=== PATIENT | female | born 1945 | race Caucasian/White ===

== ENCOUNTER → 2016-12-19 | Outpatient (CLI) | payer OTHER ==
[~2016-12-19] MED LIST: ATOR-24 PO; DVN/160 PO; OXAP600T PO
== END | disposition home or self-care (01) ==
LOC: C.PATHSPEC 17:50
PROVIDERS: ATTEND Obstetrics & Gynecology
DX: N76.2 Acute vulvitis (principal); L28.0 Lichen simplex chronicus

== ENCOUNTER → 2017-01-16 | Outpatient (CLI) | payer OTHER ==
--- NOTE | 2017-01-20 14:00 | MAMMOGRAPHY REPORT ---
THIS REPORT HAS BEEN AMENDED. BILATERAL DIGITAL SCREENING MAMMOGRAM WITH CAD: 01/16/2017 CLINICAL HISTORY: Routine screening. Patient has no complaints. TECHNIQUE: Bilateral CC and MLO views were obtained. Current study was also evaluated with a Comput er Aided Detection (CAD) system. COMPARISON: No prior exams were available for comparison. BREAST COMPOSITION: There are scattered areas of fibroglandular density in both breasts. FINDINGS: There are a few scattered punctate benign-appearing microcalcifications in the breasts. No suspicious mass, architectural distortion or cluster of suspicious microcalcifications is seen. IMPRESSION: ACR BI-RADS CATEGORY 1: NEGATIVE There is no mammographic evidence of malignancy. Prior outside mammograms are currently being reque sted and if obtained they will be reviewed, compared to the current exam to assess for any more subt le changes, and an addendum will be made to this report. Otherwise, a 1 year screening mammogram is recommended. The patient will receive written notification of the results. Approximately 10% of breast cancers are not detected with mammography. A negative mammographic repor t should not delay biopsy if a clinically suggestive mass is present. Niru Holbrook M.D. ay/:01/20/2017 12:07:01 Manager Configuration: Loreta ORDOÑEZ(Mary Lou)(Asim)(BD), [facility] letter sent: Normal 11/11 BI-RADS Code: ACR BI-RADS Category 1: Negative AMENDMENT: 01/29/2017 Niru Holbrook M.D. Prior outside mammograms from [place] dated 04/04/2011, 06/01/2012 and 08/24/2013 became available for review. The parenchymal pattern is unchanged comparing to the prior outside mammograms. There are a few scattered benign-appearing punctate microcalcifications. No suspicious mass, architectura l distortion, developing asymmetry or new suspicious microcalcifications are seen bilaterally. [place] mmend follow-up in 1 year for next annual screening mammogram. Amended BI-RADS: ACR BI-RADS Category 1: Negative letter sent: Normal 2
== END | disposition home or self-care (01) ==
LOC: C.MAMM 10:48
PROVIDERS: ATTEND Obstetrics & Gynecology
DX: Z12.31 Encounter for screening mammogram for malignant neoplasm of breast (principal)

== ENCOUNTER 2017-12-27 09:21 | Emergency (ER) | payer OTHER ==
[~2017-12-27] VITALS: Ht 167.6 cm; Wt 67.7 kg
[2017-12-27 09:25] VITALS: TEMP 36.8; Ht 167.6 cm; Wt 67.7 kg
--- NOTE | 2017-12-27 09:40 | EMERGENCY ROOM VISIT NOTE ---
History First contact with patient: 09:28 Chief Complaint: BACK PAIN Stated Complaint: BACK PAIN LOWER, HEADACHE,LOW GRADE FEVER History of Present Illness The patient is a 72 year old female who presents to the Emergency Room with complaints of worsening low back pain that started 2 days ago. She was recalls bending to pick something up, and though there was no immediate pain, her back later became sore, and patient felt she may have pulled a muscle. The pain spread to her bilateral low back, and did not improve with muscle cream. The pain is worse when lying flat, but improves with ambulation. She has not tried any analgesics for relief. Last night, pain was worse and woke her from sleep. She also felt some radiation around to right abdomen. Pain described as dull ache, severity 7/10 at it's worse, but currently 5/10. Patient had some nausea yesterday, but no vomiting. She denies any current abdominal pain. She denies numbness, tingling or weakness in the lower extremities, no saddle paresthesias, no incontinence of stool or urine. She has had no urinary symptoms or changes in bowel habits. No falls or trauma to back. No previous back injury. Her only surgeries include 3 sections. She otherwise denies fevers/chills, CP, palpitations, dyspnea, lower extremity swelling or rashes. She is tolerating diet without nausea, vomiting or pain exacerbation. Review of Systems See HPI for pertinent positives and negatives. A total of ten systems were reviewed and were otherwise negative. Past Medical/Surgical History Medical Problems: (1) Chest pain (2) Heart palpitations (3) Hepatitis C (4) Hypertension (5) S/P knee surgery Surgical Problems: (1) H/O section (2) Hx of vagotomy (3) S/P tonsillectomy Family History Diabetes mellitus FHx: cancer FHx: heart disease Hypertension Social History Smoking Status: Never Smoker Alcohol Use: none Marital Status: Housing Status: lives with significant other Occupation Status: retired Current/Historical Medications Scheduled Atorvastatin (Lipitor), 40 MG PO QPM Oxaprozin (Daypro), 600 MG PO QAM Valsartan (Diovan), 160 MG PO QAM Physical Exam Vital Signs Date Time Temp Pulse Resp B/P (MAP) Pulse Ox O2 Delivery O2 Flow Rate FiO2 12/27/17 11:51 78 18 147/84 98 2/17/18 10:57 54 18 159/88 95 Room Air 12/27/17 09:25 36.8 60 18 168/92 96 Room Air Physical Exam GENERAL: alert, well appearing, thin, sitting in bed, no acute distress, non- toxic HEAD: Normocephalic, atraumatic EYES: PERRL, EOMI, normal sclera and conjunctiva OROPHARYNX: No exudate, no erythema. Lips, buccal mucosa, and tongue normal and mucous membranes are tacky NECK: Supple, no nuchal rigidity, no adenopathy, non-tender, full ROM LUNGS: No reproducible chest wall tenderness. Clear to auscultation. Normal chest wall mechanics, good air entry. No crepitations, crackles, or wheezes HEART: RRR, S1 and S2 normal, no murmurs appreciated ABDOMEN: Soft, non-tender, normo-active bowel sounds, no masses, no rebound or guarding. BACK: Back is symmetrical on inspection, no deformities, no midline tenderness, no paraspinal tenderness, no CVA tenderness. Full ROM - flexion, extension, lateral flexion, rotation - without exacerbating pain symptoms. SKIN: Warm, pink, dry. No erythema, rashes, or bruising. EXTREMITIES: Grossly normal. Moving all 4 limbs. No pitting edema. Calves non tender. NEURO: Alert, Ox3. No focal deficits. Cranial nerves II-XII grossly intact, normal speech. Normal sensorium, strength 5/5 in all extremities. Patellar DTR 2 +. Gait non-antalgic, WNL. PSYCH: Mood and affect appropriate. Medical Decision & Procedures ER Provider Diagnostic Interpretation: LUMBAR SPINE 3 VIEWS HISTORY: low back pain COMPARISON: None. FINDINGS: There is no fracture. Mild levoscoliosis. Epigastric surgical clips. The sacrum appears intact. 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 Alignment is maintained. Small endplate osteophytes and mild disc space narrowing at L2-L3, L3-L4, and L4-L5. IMPRESSION: No fracture or subluxation within the lumbar spine. Degenerative changes as described above. Laboratory Results 12/27/17 10:00 Red Blood Count 4.46, Mean Corpuscular Volume 88.1, Mean Corpuscular Hemoglobin 29.8, Mean Corpuscular Hemoglobin Concent 33.8, Mean Platelet Volume 9.5, Neutrophils (%) (Auto) 58.0, Lymphocytes (%) (Auto) 28.7, Monocytes (%) (Auto) 7.1, Eosinophils (%) (Auto) 5.3, Basophils (%) (Auto) 0.7, Neutrophils # (Auto) 3.41, Lymphocytes # (Auto) 1.69, Monocytes # (Auto) 0.42, Eosinophils # (Auto) 0.31, Basophils # (Auto) 0.04 12/27/17 10:00 Test 12/27/17 10:00 White Blood Count 5.88 K/uL (4.8-10.8) Red Blood Count 4.46 M/uL (4.2-5.4) Hemoglobin 13.3 g/dL (12.0-16.0) Hematocrit 39.3 % (37-47) Mean Corpuscular Volume 88.1 fL (80-100) Mean Corpuscular Hemoglobin 29.8 pg (25-34) Mean Corpuscular Hemoglobin Concent 33.8 g/dl (32-36) Platelet Count 202 K/uL (130-400) Mean Platelet Volume 9.5 fL (7.4-10.4) Neutrophils (%) (Auto) 58.0 % Lymphocytes (%) (Auto) 28.7 % Monocytes (%) (Auto) 7.1 % Eosinophils (%) (Auto) 5.3 % Basophils (%) (Auto) 0.7 % Neutrophils # (Auto) 3.41 K/uL (1.4-6.5) Lymphocytes # (Auto) 1.69 K/uL (1.2-3.4) Monocytes # (Auto) 0.42 K/uL (0.11-0.59) Eosinophils # (Auto) 0.31 K/uL (0-0.5) Basophils # (Auto) 0.04 K/uL (0-0.2) RDW Standard Deviation 43.2 fL (36.4-46.3) RDW Coefficient of Variation 13.4 % (11.5-14.5) Immature Granulocyte % (Auto) 0.2 % Immature Granulocyte # (Auto) 0.01 K/uL (0.00-0.02) Urine Color YELLOW Urine Appearance CLEAR (CLEAR) Urine pH 5.5 (4.5-7.5) Urine Specific [place] 1.016 (1.000-1.030) Urine Protein NEG (NEG) Urine Glucose (UA) NEG (NEG) Urine Ketones NEG (NEG) Urine Occult Blood NEG (NEG) Urine Nitrite NEG (NEG) Urine Bilirubin NEG (NEG) Urine Urobilinogen NEG (NEG) Urine Leukocyte Esterase NEG (NEG) Anion Gap 8.0 mmol/L (3-11) Est Creatinine Clear Calc Drug Dose 59.0 ml/min Estimated GFR () 82.8 Estimated GFR (Non- 71.4 BUN/Creatinine Ratio 29.1 (10-20) Calcium Level 9.1 mg/dl (8.5-10.1) Total Bilirubin 0.5 mg/dl (0.2-1) Direct Bilirubin 0.1 mg/dl (0-0.2) Aspartate Amino Transf (AST/SGOT) 26 U/L (15-37) Alanine Aminotransferase (ALT/SGPT) 30 U/L (12-78) Alkaline Phosphatase 104 U/L (45-117) Total Protein 7.5 gm/dl (6.4-8.2) Albumin 3.8 gm/dl (3.4-5.0) Medications Administered Medications (Trade) Dose Ordered Sig/Lyndon Route Start Time Stop Time Status Last Admin Dose Admin Sodium Chloride 500 ml @ 150 mls/hr Q3H20M IV 12/27/17 10:45 12/27/17 12:13 DC 12/27/17 10:55 150 MLS/HR Medical Decision Prior records/ancillary studies reviewed. Triage Nursing notes reviewed. Additional history obtained from patient. The patient's history was concerning for back pain. Differential diagnosis: Etiologies such as musculoskeletal, disc herniation, fracture, aortic disease, metastatic disease, cord compression, discitis, infection, renal colic, gastrointestinal, acute exacerbation of chronic back pain, sciatica, cauda equina, as well as others were entertained. Physical findings: As above. No focal neurologic findings noted. ER treatment provided: Patient declined analgeics and anti-emetics as she is asymptomatic at this time On reassessment the patient felt better. Diagnostics interpreted by me: The labs revealed CBC, BMP, LFT WNL. UA unremarkable. Imaging studies: L-spine film: degenerative changes, but no fractures or subluxation. By the evaluation outlined above emergent etiologies such as fracture, aortic disease, metastatic disease, infection, renal colic, gastrointestinal, cord compression, cauda equina, as well as others were deemed relatively unlikely. The patient was informed about the findings as listed above. All questions were answered and she was pleased with the treatment. Return instructions were outlined and the patient was discharged in stable condition. Outpatient prescription management: Tylenol and/or ibuprofen PRN pain Warm compress Gentle stretching Referral: The patient was referred back to her primary care physician for follow-up in 2 to 3 days for a recheck of the current condition, and for possible referral to physical therapy.. Impression Primary Impression: Low back pain Departure Information Dispostion Home / Self-Care Condition GOOD Referrals No Doctor, Assigned (PCP) Patient Instructions My [facility] Resident Tracking Resident Involvement: Resident Care Provided Care Provided: Adult ED
--- NOTE | 2017-12-27 10:06 | EMERGENCY ROOM VISIT NOTE ---
ED Visit Note First contact with patient: 09:29 Resident Physician Supervision Note: I interviewed and examined the patient. Discussed with Dr. Lyle and agree with findings and plan as documented in the note. Documented By: Dave Lindo Problem List Medical Problems: (1) Hepatitis C Status: Resolved (2) Hypertension Status: Chronic (3) S/P knee surgery Status: Resolved Surgical Problems: (1) H/O section Status: Resolved (2) Hx of vagotomy Status: Resolved (3) S/P tonsillectomy Status: Resolved Current/Historical Medications Scheduled Atorvastatin (Lipitor), 40 MG PO QPM Oxaprozin (Daypro), 600 MG PO QAM Valsartan (Diovan), 160 MG PO QAM Allergies Coded Allergies: Levofloxacin (Unverified Allergy, Unknown, upset stomach , 07/24/16) Vital Signs Date Time Temp Pulse Resp B/P (MAP) Pulse Ox O2 Delivery O2 Flow Rate FiO2 12/27/17 09:25 36.8 60 18 168/92 96 Room Air Laboratory Results Test 12/27/17 09:40 12/27/17 09:57 Departure Information Referrals No Doctor, Assigned (PCP) Patient Instructions [facility]
[2017-12-27 10:19] LABS: BASO % 0.7 %; BASO ABS # 0.04 K/uL (0-0.2); EOS % 5.3 %; EOS ABS # 0.31 K/uL (0-0.5); HEMATOCRIT 39.3 % (37-47); HEMOGLOBIN 13.3 g/dL (12.0-16.0); IG# 0.01 K/uL (0.00-0.02); LYMPH % 28.7 %; LYMPH ABS # 1.69 K/uL (1.2-3.4); MEAN CELL VOLUME 88.1 fL (80-100); MEAN CORPUSCULAR HEMOGLOBIN 29.8 pg (25-34); MEAN CORPUSCULAR HGB CONC 33.8 g/dl (32-36); MEAN PLATELET VOLUME 9.5 fL (7.4-10.4); MONO % 7.1 %; MONO ABS # 0.42 K/uL (0.11-0.59); NEUT ABS # 3.41 K/uL (1.4-6.5); PLATELET COUNT 202 K/uL (130-400); RED CELL DISTRIBUTION WIDTH CV 13.4 % (11.5-14.5); RED CELL DISTRIBUTION WIDTH SD 43.2 fL (36.4-46.3); WHITE BLOOD COUNT 5.88 K/uL (4.8-10.8)
[2017-12-27 10:37] LABS: ALBUMIN 3.8 gm/dl (3.4-5.0); CALCIUM 9.1 mg/dl (8.5-10.1); CREATININE 0.83 mg/dl (0.60-1.20); POTASSIUM 3.9 mmol/L (3.5-5.1)
[2017-12-27 10:40] LABS: TOTAL PROTEIN 7.5 gm/dl (6.4-8.2)
--- NOTE | 2017-12-27 10:43 | DIAGNOSTIC IMAGING REPORT ---
LUMBAR SPINE 3 VIEWS HISTORY: low back pain COMPARISON: None. FINDINGS: There is no fracture. Mild levoscoliosis. Epigastric surgical clips. The sacrum appears intact. 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 Alignment is maintained. Small endplate osteophytes and mild disc space narrowing at L2-L3, L3-L4, and L4-L5. IMPRESSION: No fracture or subluxation within the lumbar spine. Degenerative changes as described above. Electronically signed by: Tavo Grace M.D. 12/27/2017 10:42 AM Dictated Date/Time: 12/27/2017 10:40 AM
[2017-12-27] MEDS ORDERED: SODIUM CHLORIDE 0.9% 500ML 500 ML IV SCH (10:45)
[2017-12-27 11:51] VITALS: BP 147/84; PULSE 78; O2SAT 98
== END 2017-12-27 11:52 | disposition home or self-care (01) ==
LOC: C.EDB 09:23
DX: M54.5 Low back pain (principal); B19.20 Unspecified viral hepatitis C without hepatic coma; I10 Essential (primary) hypertension; Z83.3 Family history of diabetes mellitus; Z80.9 Family history of malignant neoplasm, unspecified; Z82.49 Family history of ischemic heart disease and other diseases of the circulatory system; Z79.899 Other long term (current) drug therapy

== ENCOUNTER → 2018-02-06 | Outpatient (CLI) | payer OTHER ==
--- NOTE | 2018-02-09 07:33 | MAMMOGRAPHY REPORT ---
BILATERAL DIGITAL SCREENING MAMMOGRAM TOMOSYNTHESIS WITH CAD: 02/06/2018 CLINICAL HISTORY: Routine screening. Patient has no complaints. TECHNIQUE: Breast tomosynthesis in addition to standard 2D mammography was performed. Current study was also evaluated with a Computer Aided Detection (CAD) system. COMPARISON: Comparison is made to exams dated: 01/16/2017 mammogram - [facility], mammogram, 06/01/2012 mammogram, and 04/04/2011 mammogram - [facility]. BREAST COMPOSITION: There are scattered areas of fibroglandular density in both breasts. FINDINGS: There is a nodular 6 mm asymmetry seen within the left breast middle depth posterior to the nipple on the cc tomosynthesis images, not clearly evident on the MLO view. Recommend spot compress ion tomosynthesis views and possible breast ultrasound for further evaluation. The remainder of both breasts are stable compared to prior exams, without suspicious masses, calcific ations, or areas of architectural distortion noted. IMPRESSION: ACR BI-RADS CATEGORY 0: INCOMPLETE EVALUATION: NEED ADDITIONAL IMAGING EVALUATION Left breast asymmetry, for which additional imaging evaluation is recommended. The patient will be c alled to schedule an appointment. Approximately 10% of breast cancers are not detected with mammography. A negative mammographic report should not delay biopsy if a clinically suggestive mass is present. Jolanta Li M.D. ah/:02/06/2018 16:42:21 Gas Leak Inspector: Loreta BELLE)(Asim)(BD), [facility] letter sent: Addl Imaging 0 BI-RADS Code: ACR BI-RADS Category 0: Incomplete Evaluation: Need Additional Imaging Evaluation
== END | disposition home or self-care (01) ==
LOC: C.MAMM 09:38
PROVIDERS: ATTEND Obstetrics & Gynecology
DX: Z12.31 Encounter for screening mammogram for malignant neoplasm of breast (principal); R92.8 Other abnormal and inconclusive findings on diagnostic imaging of breast

== ENCOUNTER → 2018-02-18 | Outpatient (CLI) | payer OTHER ==
--- NOTE | 2018-02-19 07:58 | MAMMOGRAPHY REPORT ---
UNILATERAL LEFT DIGITAL DIAGNOSTIC MAMMOGRAM TOMOSYNTHESIS AND TARGETED LEFT ULTRASOUND: 02/18/2018 CLINICAL HISTORY: 72-year-old woman called back from screening mammography for a 6 mm nodular asymmet ry in the middle one third of the left breast on the cc view. TECHNIQUE: Spot compression left CC and MLO tomosynthesis images were obtained. COMPARISON: Comparison is made to exams dated: 02/06/2018 mammogram, 01/16/2017 mammogram - [facility], 08/24/2013 mammogram, 06/01/2012 mammogram, and 04/04/2011 mammogram - [facility]. BREAST COMPOSITION: There are scattered areas of fibroglandular density in the left breast. FINDINGS: The supplemental spot compression tomosynthesis views of the left breast demonstrate effac ement of the 6 mm nodular asymmetry along the posterior nipple line on the spot compression left CC v iew. No corresponding abnormality, suspicious mass or area of architectural distortion is seen on th e spot compression MLO tomosynthesis images. Targeted ultrasound was performed in the left breast 6:00, retroareolar and 12:00 axes as well as the slightly lateral and slightly medial left breast. There is a small area of focal duct ectasia with i nterspersed normal tissue versus possible intraductal mass in the 4:00 left breast, 3 cm from the nip ple, measuring 5.0 x 2.3 x 4.9 mm. This is likely incidental and not thought to correspond with the initial mammographic asymmetry. No other discrete solid or cystic mass is identified. Nevertheless given that this is a focal abnormality and could possibly represent an intraductal mass, definitive c haracterization with ultrasound-guided core biopsy is recommended. IMPRESSION: ACR BI-RADS CATEGORY 4: SUSPICIOUS, TARGETED ULTRASOUND ACR BI-RADS CATEGORY 4: SUSPICIO US 1. Ultrasound-guided core biopsy is recommended for an area of focal duct ectasia versus possible in traductal mass measuring 5 mm within the 4:00 left breast, 3 cm from the nipple. This is likely inci dentally identified as the initial mammographic asymmetry effaced with supplemental spot compression tomosynthesis images. These results and recommendations were discussed with the patient at the time of the exam. She tenta tively scheduled the biopsy prior to leaving the department. Approximately 10% of breast cancers are not detected with mammography. A negative mammographic report should not delay biopsy if a clinically suggestive mass is present. Niru Holbrook M.D. ay/:02/18/2018 10:51:44 Head Paper Tester: Leticia BELLE)Ja), [facility] letter sent: Abnormal 4/5 BI-RADS Code: ACR BI-RADS Category 4: Suspicious Ultrasound BI-RADS: ACR BI-RADS Category 4: Suspici ous
== END | disposition home or self-care (01) ==
LOC: C.MAMM 10:18
PROVIDERS: ATTEND Obstetrics & Gynecology
DX: R92.8 Other abnormal and inconclusive findings on diagnostic imaging of breast (principal)

== ENCOUNTER → 2018-03-02 | Outpatient (CLI) | payer OTHER ==
--- NOTE | 2018-03-02 10:55 | Discharge Instructions ---
Discharge Instructions Procedure Procedure Date: Mar 02, 2018. Reason for visit: Left Mass. Discharge Discharge Date: Mar 02, 2018. Discharge Diagnosis: post left breast ultrasound guided core biopsy Instructions Activity Recommendations: Additional Limitations (see below) Return to School/Work: no limitations Recommended Home Diet: No Limitations Provider Instructions: ACTIVITY RECOMMENDATIONS: * No lifting, pushing, pulling or exercising the affected side for three days. RETURN TO SCHOOL/WORK: * You may return to work/school after the procedure, but do not perform any strenuous activities for 24 to 48 hours. MEDICATIONS: * Tylenol (two 325 mg) every four to six hours if needed for mild pain (if not allergic to Tylenol). DIET: * Resume previous diet. SPECIAL CARE INSTRUCTIONS: * Keep biopsy site dry for 24 hours. May shower after 24 hours, but do not soak (bathe) incision. * May remove Tegaderm (plastic patch) tomorrow AFTER showering. * Leave the steri-strips on for one week. Allow the steri-strips to fall off by themselves. If not off after one week, you may remove them. You may place a Bandaid crosswise over the strips, if desired. * Apply ice 10 minutes on and 10 minutes off as needed. * Wear a bra at bedtime to sleep more comfortably for 2-3 days. * Your referring physician should have the results after approximately 5 to 7 business days. * Call for unusual bleeding, fever, drainage, etc or if you have any questions call [phone] during normal business hours or after hours call Dr Holbrook, . FOLLOW UP VISIT: Follow-up with Referring Physician as scheduled. Allergies Coded Allergies: Levofloxacin (Unverified Allergy, Unknown, upset stomach , 07/24/16) Stacey Burrows Recommendations: Call your doctor if: * Temperature above 101 degrees * Pain not relieved by pain medicine ordered * There is increased drainage or redness from any incision * You have any unanswered questions or concerns. Your Doctors Instructions noted above were prepared by provider Niru Holbrook. Patient Signature Section: Patient Instructions Signature Page Mitzy Berg Patient (or Guardian) Signature/Date: I have read and understand the instructions given to me by my caregivers. Caregiver/RN/Doctor Signature/Date: The above-named patient and/or guardian has received patient instructions on this date. + Original Patient Signature Page (only) stays with chart. Please make copy for patient.
--- NOTE | 2018-03-03 07:37 | MAMMOGRAPHY REPORT ---
ULTRASOUND GUIDED BIOPSY LEFT BREAST: 03/02/2018 CLINICAL HISTORY: 72-year-old woman presents for biopsy in the left breast of a 5 mm lesion identifie d in the 4:00 axis on ultrasound, which could represent focal duct ectasia, a cyst or intraductal mas s. COMPARISON: Comparison is made to exams dated: 02/18/2018 ultrasound, 02/18/2018 mammogram, 02/06/2018 mammogram, 01/16/2017 mammogram - [facility], 08/24/2013 mammogram, and 06/01/2012 [facility]. PATIENT CONSENT: The procedure, risks and benefits were discussed with the patient and informed conse nt was obtained both verbally and in writing. Specific risks to this procedure include: bleeding, in fection, puncture of adjacent structure, nontarget biopsy, sampling error, pain, metal allergy and me dication reaction. PROCEDURE DESCRIPTION: A time out was performed and the left breast was agreed as the site of biopsy. The skin was prepped and draped in the usual sterile fashion. The 5 mm mass in the 4:00 left breast was chosen as the target for biopsy. Subcutaneous and intraparenchymal 1% buffered lidocaine, with an d without epinephrine, was administered as local anesthesia. A skin incision was made. Through the i ncision, 4 samples were taken with a 14 gauge Achieve biopsy device. A ribbon shaped metallic marker was placed at the biopsy site. Hemostasis was achieved after manual compression. The patient tolerate d the procedure well and there was no immediate complication. The samples were sent to the pathology department in an appropriately labeled container. Postprocedure left CC and ML tomosynthesis images were obtained. A new ribbon-shaped biopsy marker c lip, and no significant hematoma, is identified in the 4:00 middle one third of the left breast. Bas ed on the postprocedure CC projection, the clip may align with the initial nodular asymmetry in quest ion although it is displaced medially by approximately 3 mm. Pending benign pathology results, may c onsider a six-month follow-up exam to ensure stability. IMPRESSION: ULTRASOUND GUIDED BIOPSY Status post ultrasound-guided core biopsy of an indeterminate 5 mm mass versus focal duct ectasia in the 4:00 left breast, with ribbon-shaped biopsy marker clip placed at the site. The patient will receive notification of the biopsy results from her referring physician. Niru Holbrook M.D. ay/:03/02/2018 11:09:05 Radiochemical Technician: Isabel BELLE)Ja), [facility]
--- NOTE | 2018-03-03 07:40 | MAMMOGRAPHY REPORT ---
UNILATERAL LEFT DIGITAL DIAGNOSTIC MAMMOGRAM TOMOSYNTHESIS: 03/02/2018 CLINICAL HISTORY: Status post ultrasound-guided core biopsy of a 5 mm possible intraductal mass versu s duct ectasia versus cyst in the 4:00 left breast. Please refer to the report from left breast ultrasound-guided core biopsy performed at the same time for full detail. IMPRESSION: POST PROCEDURE IMAGING FOR MARKER PLACEMENT Please refer to the report from left breast ultrasound-guided core biopsy performed at the same time for full detail. Approximately 10% of breast cancers are not detected with mammography. A negative mammographic report should not delay biopsy if a clinically suggestive mass is present. Niru Holbrook M.D. ay/:03/02/2018 10:57:19 Fabric Worker: Isabel ORDOÑEZ(Mary Lou)(Asim), [facility] BI-RADS Code: Post Procedure Imaging For Marker Placement
== END | disposition home or self-care (01) ==
LOC: C.MAMM 10:23
PROVIDERS: ATTEND Obstetrics & Gynecology
DX: N63.23 Unspecified lump in the left breast, lower outer quadrant (principal); N60.82 Other benign mammary dysplasias of left breast